=== PATIENT | female | born 1950 | race Hispanic/Latino ===

== ENCOUNTER 2024-12-02 11:30 | Emergency (ER) | payer OTHER, MEDICARE ==
[~2024-12-02] VITALS: Ht 154.9 cm; Wt 93.4 kg
--- NOTE | 2024-12-02 11:38 | ERN ---
ED Note History of Present Illness Stated Complaint: FALL Chief Complaint: Mechanical Fall Time Seen by MD: 11:32 Dictation: PATIENT IS A 74-YEAR-OLD FEMALE WHO WAS OUTSIDE A LOCAL DOCTOR'S OFFICE WHEN SHE TRIPPED AND FELL ON A PIECE OF FURNITURE. SHE LANDED ON AN EXTENDED LEFT HAND AND IS HAVING WRIST PAIN LATERALLY. DECREASED RANGE OF MOTION WITH SWELLING NOTED. NO BLOOD THINNERS NO LOC NO HEAD INJURY. CAN ANYTHING PRIOR TO ARRIVAL FOR PAIN. Allergies: Coded Allergies: No Known Drug Allergies (Unverified Allergy, Unknown, 12/02/24) Past Medical History History: Not Applicable RN Note Reviewed/Agreed w/PFSH: Yes Review of System Dictation CONSTITUTIONAL: NEGATIVE EXCEPT FOR HPI HEAD/FACE: NEGATIVE EXCEPT FOR HPI EENT: NEGATIVE EXCEPT FOR HPI RESPIRATORY: NEGATIVE EXCEPT FOR HPI GASTROINTESTINAL/ABDOMINAL: NEGATIVE EXCEPT FOR HPI GENITOURINARY: NEGATIVE EXCEPT FOR HPI MUSCULOSKELETAL: NEGATIVE EXCEPT FOR HPI LEFT WRIST PAIN INTEGUMENTARY: NEGATIVE EXCEPT FOR HPI NEUROLOGICAL/PSYCH: NEGATIVE EXCEPT FOR HPI HEMATOLOGIC/LYMPHATIC: NEGATIVE EXCEPT FOR HPI ALL SYSTEMS NEGATIVE, EXCEPT NOTED ABOVE. 13 POINT REVIEW OF SYSTEMS ASSESSED AND ALL NEGATIVE EXCEPT FOR ABOVE. Initial Vital Sign VS Vital Signs Date Time Temp Pulse Resp B/P (MAP) Pulse Ox O2 Delivery O2 Flow Rate FiO2 12/02/24 11:36 98.4 75 16 160/123 96 Room Air* 0 21 Physical Exam Dictation VITAL SIGNS REVIEWED GENERAL APPEARANCE: ALERT, ORIENTED X 3, HURTS ACUTE DISTRESS, WELL DEVELOPED, NOURISHED. HEAD AND FACE: NON-TRAUMATIC. EYES: PERRL, PINK CONJUNCTIVAS, EYELID NO TRAUMA, ANTERIOR CHAMBER WITH ARCUS SENILIS. EARS: PINNAS INTACT AND NO SIGNS OF TRAUMA OR ERYTHEMA EAR CANALS CLEAR AND NO DISCHARGE TM NO ERYTHEMA NOSE: NO DISCHARGE, NO BLEEDING. OROPHARYNX: MOUTH NORMAL, TONGUE PINK, PHARYNX CLEAR,NO ERYTHEMA, TONSILS NO EXUDATES, NO ABSCESSES NOTED, MUCOUS MEMBRANE MOIST NECK: SUPPLE, NON-TENDER, NO THYROMEGALY, NO MASSES, NO JVD, NO BRUITS BREAST:DEFERRED CHEST:NO TENDERNESS, NO CREPITUS, NO PARADOXICAL MOVEMENT, NO RETRACTIONS LUNGS:CLEAR, WELL-VENTILATED, SYMMETRIC, NO RALES, NO WHEEZING, NO RHONCHI, NO STRIDOR, GOOD BREATH SOUNDS BILATERALLY HEART: REGULAR RATE, REGULAR RHYTHM, NO MURMUR, NO GALLOPS VASCULAR: NO PERIPHERAL EDEMA, ABDOMEN: SOFT, POSITIVE BOWEL SOUNDS, NONDISTENDED, NO GUARDING, NONTENDER, NO REBOUND, NO MASSES NO HEPATOMEGALY, NO SPLENOMEGALY, NO JIMENEZ'S SIGN, NO HERNIAS. RECTAL: DEFERRED GENITAL: DEFERRED NEUROLOGICAL: NORMAL SPEECH, MOTOR FUNCTION INTACT, SENSORY FUNCTION INTACT MUSCULOSKELETAL: NECK NONTENDER, FULL RANGE OF MOTION, BACK NONTENDER, FULL RANGE OF MOTION, EXTREMITIES: LEFT WRIST PAIN WITH SWELLING LATERALLY. DECREASED RANGE OF MOTION SECONDARY TO PAIN NEUROVASCULAR CMS INTACT SKIN: COLOR PINK, DRY, NO TURGOR, NO RASH, NO LACERATIONS, NO ABRASIONS, NO CONTUSIONS. LYMPHATIC: DEFERRED Results (Laboratory/Radiology) Laboratory/Radiology Left wrist x-ray demonstrates a nondisplaced distal left radius fracture Labs Reviewed?: Yes ED Course ED Course Orders Procedure Category Date Status Time Wrist Comp 3+Vws Lt RAD 12/02/24 Taken 11:35 Apply Ice Pack To: CPOE 12/02/24 Transmitted (Er) 11:35 Acetaminophen With PHA 12/02/24 Complete Codeine (Tylenol-Code 12:00 Current Medications Medications (Trade) Dose Ordered Sig/Gary Route PRN Reason Start Time Stop Time Status Last Admin Dose Admin Acetaminophen/ Codeine Phosphate (TYLenol-coDEINE TAB) 2 tab ONCE ONCE PO 12/02/24 12:00 12/02/24 12:01 DC 12/02/24 11:53 Vital Signs Date Time Temp Pulse Resp B/P (MAP) Pulse Ox O2 Delivery O2 Flow Rate FiO2 12/02/24 11:36 98.4 75 16 160/123 98 Room Air 0 12/02/24 11:36 98.4 75 16 160/123 96 Room Air* 0 21 1215/volar splint placed to left wrist with distal neurovascular CMS intact post placement Medical Decision Making MDM Medical discharge making based on pain management, x-ray of left wrist and splint. Neurovascular CMS intact to left wrist Discharged home with rice and p.r.n. analgesia Referred to Dr. Oscar Craven DX & DISP Disposition: Discharge Departure Condition: Stable Assign Patient to: Follow-up with primary care provider in 1 to 2 days. Take medications as directed here in the emergency room. Okay to continue home medications unless otherwise discussed during your visit in the emergency room today. Return to your nearest emergency room if symptoms worsen or if there is no improvement. Call 911 if you need immediate assistance. Take Tylenol or Motrin [id number] as needed and if no contraindications are present. Increase oral hydration. A wound culture or urine culture was ordered here in the [facility] room department please follow-up with primary care provider and advise them to get repeat ports from our facility. If you had any Stoney wrap/splints that were applied here, please do not remove them until you see your primary care or specialty. Splint/sling/no weight-bearing until cleared by Orthopedics, call for an appointment today or tomorrow. Cool compresses to pain three to 4 times a day. Scripts Ibuprofen (Ibuprofen 800 mg Tab) 800 Mg Tab 800 MG PO Q8H PRN for fever or pain, #30 TAB 0 Refills Prov: RK HUNTLEY NP 12/02/24 Referrals: MAREK MIMS MD (PCP) OSCAR CRAVEN MD Time of Disposition: 12:17 I have reviewed the case, and I agree with, Diagnosis and Plan RK HUNTLEY NP Dec 02, 2024 11:38
[2024-12-02] MEDS: acetaMINOPHEN WITH coDEINE 1 TAB TAB PO ONE (11:53)
[2024-12-02] MEDS ORDERED: IBUP-2077 PO (12:17)
--- NOTE | 2024-12-02 12:21 | HMCIMG ---
LEFT WRIST RADIOGRAPHS - 3 VIEWS INDICATION: Pain and swelling after fall COMPARISON: None FINDINGS: AP, lateral, and oblique views. Nondisplaced transverse articular impaction fracture deformity through the distal left radial metaphysis and nondisplaced ulnar styloid process base fracture. Scaphoid bone is intact. Mild first carpometacarpal joint osteoarthropathy. Ulnar variance is within normal limits. Carpal alignment is well maintained. Mild arterial wall calcific plaque IMPRESSION: Nondisplaced transverse articular impaction fracture deformity through the distal left radial metaphysis and nondisplaced ulnar styloid process base fracture.
[2024-12-02 12:41] VITALS: BP 151/95; PULSE 72; RESP 16; TEMP 98.4; O2SAT 98
== END 2024-12-02 13:09 | disposition home or self-care (01) ==
LOC: EDH 11:30
DX: S52.322A Displaced transverse fracture of shaft of left radius, initial encounter for closed fracture (principal); W01.0XXA Fall on same level from slipping, tripping and stumbling without subsequent striking against object, initial encounter; Y93.89 Activity, other specified; Y92.89 Other specified places as the place of occurrence of the external cause; Y99.8 Other external cause status
CPT/HCPCS: 29125; 73110; 99283